=== PATIENT | female | born 1975 | race Caucasian/White ===

== ENCOUNTER 2017-05-18 23:21 | Emergency (ER) | payer OTHER ==
[~2017-05-18] VITALS: Ht 175.3 cm; Wt 108.0 kg
[2017-05-18 23:27] VITALS: BP 140/82; PULSE 71; RESP 18; TEMP 98.1; O2SAT 97
--- NOTE | 2017-05-19 00:26 | RADRPT ---
EXAM DATE/TIME: 05/19/2017 00:14 [place] COMPARISON: No previous studies available for comparison. INDICATIONS : Patient states left hand pain after getting caught between pallets at work. MEDICAL HISTORY : None. SURGICAL HISTORY : None. ENCOUNTER: Initial ACUITY: 1 day PAIN SCORE: 8/10 LOCATION: Left hand, first digit. FINDINGS: No definite fractures, or dislocations are identified. No definite lytic or sclerotic lesion is seen . The joint spaces are well maintained. CONCLUSION: Unremarkable study. Jennifer Proctor MD on May 19, 2017 at 0:24 Board Certified Radiologist. This report was verified electronically.
--- NOTE | 2017-05-19 00:48 | PD ---
HPI Chief Complaint: Injury Time Seen by Provider: 23:59 Travel History International Travel<30 days: No Contact w/Intl Traveler<30days: No Traveled to known affect area: No History of Present Illness HPI This is a 41-year-old female who presents to the emergency department having been at work when she was lifting and transferring heavy pallets and one slipped and injured her left thumb. She's not entirely sure how the thumb went but she has severe pain at the base of the thumb, constant, worse with movement with no associated numbness or weakness. She denies any other injuries. [facility] Past Medical History Medical History: Denies Significant Hx Diminished Hearing: No Immunizations Current: No Tetanus Vaccination: Unknown Influenza Vaccination: No ?: Not LMP: 1 WEEK AGO Past Surgical History Surgical History: No Previous Surgery Social History Alcohol Use: Yes (RARELY) Tobacco Use: Yes (1 PPD) Substance Use: No Allergies-Medications (Allergen,Severity, Reaction): Coded Allergies: codeine (Verified Allergy, Severe, Nausea/Vomiting, 05/19/17) morphine (Verified Allergy, Severe, Nausea/Vomiting, 05/19/17) Reported Meds & Prescriptions Reported Meds & Active Scripts Active Active Prescriptions or Reported Medications Unobtainable Review of Systems General / Constitutional: No: Fever, Chills Respiratory: No: Cough, Shortness of Breath Physical Exam Narrative GENERAL: Well-appearing, no acute distress, nontoxic SKIN: Swelling involving the left proximal thumb into the thenar eminence. HEAD: Atraumatic. Normocephalic. ENT: No nasal bleeding or discharge. Moist mucous membranes Vascular: 2+ left radial pulse with normal capillary refill. MUSCULOSKELETAL: Tender to palpation over the first MCP of the left hand into the thenar eminence and in the snuffbox NEUROLOGICAL: Awake and alert. No obvious cranial nerve deficits. Sensation and motor grossly intact in the median, ulnar and radial distributions of the left hand. PSYCHIATRIC: Appropriate mood and affect; insight and judgment normal. Data Data Last Documented VS Vital Signs Date Time Temp Pulse Resp B/P (MAP) Pulse Ox O2 Delivery O2 Flow Rate FiO2 05/18/17 23:27 98.1 71 18 140/82 (101) 97 Orders Orders Hand, Complete ([id number]) (05/19/17 ) [facility] Medical Decision Making Medical Screen Exam Complete: Yes Emergency Medical Condition: Yes Interpretation(s) Afebrile, no tachycardia, normotensive Last 24 hours Impressions Hand X-Ray 05/19/17 0000 Signed Impressions: Service Date/Time: April 00:14 - CONCLUSION: Unremarkable study. Jennifer Proctor MD Differential Diagnosis Metacarpal fracture, scaphoid fracture, ulnar collateral ligament injury, thumb sprain Narrative Course This is a 41-year-old female who presents to the emergency department with swelling and pain in her left thumb following a significant injury with a pallet. She has tenderness over the snuffbox and significant swelling. She has a normal neurovascular exam. X-rays reassuring. Patient will be splinted in a thumb spica and will be referred to hand surgery. Diagnosis Primary Impression: Thumb injury Qualified Codes: S69.92XA - Unspecified injury of left wrist, hand and finger( s), initial encounter Referrals: Lincoln Arrieta III, MD Patient Instructions: General Instructions Additional Instructions: If you develop numbness, weakness or coolness of your thumb return to the emergency room. Follow-up with a hand surgeon as soon possible. Med/Other Pt SpecificInfo: No Change to Meds Scripts Unable to Obtain Active Prescriptions or Reported Meds Disposition: 01 DISCHARGE HOME Condition: Stable Kaylen Rizvi MD May 19, 2017 00:48
[2017-05-19] MEDS ORDERED: ACETAMINOPHEN 500 MG CPLT PO ONE (01:00)
[2017-05-19 01:14] VITALS: BP 138/72
== END 2017-05-19 01:15 | disposition home or self-care (01) ==
LOC: PHED 23:21 → PHEFT 05-19 01:15
DX: S69.92XA Unspecified injury of left wrist, hand and finger(s), initial encounter (principal); F17.210 Nicotine dependence, cigarettes, uncomplicated; W23.0XXA Caught, crushed, jammed, or pinched between moving objects, initial encounter; Y99.9 Unspecified external cause status; Z88.5 Allergy status to narcotic agent
CPT/HCPCS: 73130; 99283; L3808